=== PATIENT | female | born 1990 ===

== ENCOUNTER 2017-10-14 13:14 | Inpatient (IN) ==
[2017-10-14] MEDS ORDERED: BUPIVACAINE SPINAL 0.75% 2 ML AMP SPINAL ONE (13:47)
[2017-10-14] MEDS ORDERED: ceFAZolin 2,000 MG in PREMIX 1 EACH IV ONE (14:07)
[2017-10-14] MEDS ORDERED: CITRIC ACID/SODIUM CITRATE 30 ML UDCUP PO ONE (14:07)
[2017-10-14] MEDS ORDERED: FAMOTIDINE 20 MG/2 ML VIAL IV ONE (14:07)
[2017-10-14 14:24] LABS: Basophils % 0.4 % (0.0-0.8); Eosinophils # 0.1 10*3/uL (0.0-0.87); Eosinophils % 1.1 % (0.00-10.9); Hematocrit 35.8 VOL% (35.7-47.0); Hemoglobin 11.9 GM/DL (12.0-16.0); Immature Granulocytes % 0.7 %; Immature Granulocytes Absolute 0.08 #; Lymphocytes # 1.9 10*3/uL (1.4-4.0); Lymphocytes % 16.8 % (21.3-54.2); Mean Corpuscular HGB Conc 33.2 GM/DL (32-36); Mean Corpuscular Hemoglobin 29 PG (27-34); Mean Corpuscular Volume 87.3 FL (87-102); Monocytes # 0.7 10*3/uL (0.11-0.8); Monocytes % 6.1 % (1.7-12.7); Neutrophils # 8.6 10*3/uL (1.4-7.4); Neutrophils % 74.9 % (38.7-73.9); Platelet Count 271 T/CUMM (130-400); Red Cell Distribution Width 14.2 % (9.3-17.3); White Blood Count 11.4 T/CUMM (4-12)
[2017-10-14 14:27] LABS: Apearance,Urine CLEAR (Clear); Bacteria,Urine Occasional /HPF (Few); Bilirubin,Urine Negative (Negative); Blood, Urine Moderate mg/dL (Negative); Glucose,Urine (UA) Negative (Negative); Ketones,Urine Negative (Negative); Mucus,Urine Occasional /LPF (Occasional); Nitrite,Urine Negative (Negative); Protein,Urine Negative; RBC,Urine 56 /HPF (0-4); Squamous Epithelial Cell,Urine Occasional /HPF (0-10); Urine Color Yellow (Yellow); Urine Specific Gravity 1.012 (1.001-1.035); Urine Urobilinogen < 2.0 EU/DL (0.2-1.0); WBC,Urine 2 /HPF (0-6)
[2017-10-14] MEDS ORDERED: LACTATED RINGERS 1,000 ML IV SCH ×3 (14:30→16:00)
[2017-10-14] MEDS ORDERED: OXYTOCIN/LR 20 UNIT/1,000 ML BAG IV ONE ×3 (14:32→15:46)
[2017-10-14] MEDS ORDERED: LACTATED RINGERS 1,000 ML IV ONE ×2 (14:33→15:54)
[2017-10-14 14:36] LABS: INR 0.9; PT Patient Result 9.5 SECS; Partial Thromboplastin Time 29.9 SECS (0-40)
[2017-10-14 14:44] LABS: Barbiturates Screen,Urine Negative (Negative); Benzodiazepines Screen,Urine Negative (Negative); Cannabinoid Screen,Urine Negative (Negative); Opiate Screen,Urine Negative (Negative); Phencyclidine Screen,Urine Negative (Negative)
[2017-10-14 14:58] LABS: Alanine Aminotransferase 15 U/L (13-56); Albumin 2.9 G/DL (3.4-5.0); Alkaline Phosphatase 178 U/L (45-117); Aspartate Amino Transferase 18 U/L (0-37); Bilirubin,Total < 0.39 MG/DL (0.2-1.0); Blood Urea Nitrogen 4 MG/DL (7-18); Calcium 8.5 MG/DL (8.5-10.1); Glucose 77 MG/DL (74-106); Osmolality,Calculated 270.7 MOS/KG (273-304); Potassium 4.2 MMOL/L (3.5-5.1); Sodium 138 MMOL/L (136-145); Total Protein 6.8 G/DL (6.4-8.3)
[2017-10-14] MEDS ORDERED: SIMETHICONE CHEW 80 MG TABLET PO PRN (15:46)
[2017-10-14] MEDS ORDERED: RHO(D) IMMUNE GLOBULIN 300 MCG SYRINGE IM ONE (15:46)
[2017-10-14] MEDS ORDERED: ONDANSETRON 4 MG/2 ML VIAL IV PRN ×2 (15:46→15:59)
[2017-10-14] MEDS ORDERED: ACETAMINOPHEN 325 MG TABLET PO PRN (15:46)
[2017-10-14] MEDS ORDERED: MORPHINE 10 MG/10 ML VIAL ONE (15:54)
[2017-10-14] MEDS ORDERED: ONDANSETRON 4 MG/2 ML VIAL ONE (15:54)
[2017-10-14] MEDS ORDERED: KETOROLAC 30 MG/1 ML VIAL ONE (15:54)
[2017-10-14] MEDS ORDERED: diphenhydrAMINE 50 MG/1 ML VIAL IV PRN (15:59)
[2017-10-14] MEDS ORDERED: hydrOXYzine HCL 25 MG/1 ML VIAL IM PRN (15:59)
[2017-10-14] MEDS ORDERED: HYDROmorphone 2 MG/1 ML VIAL IV PRN (15:59)
[2017-10-14] MEDS ORDERED: SODIUM CHLORIDE 0.9% 1,000 ML IV SCH (16:00)
[2017-10-14] MEDS: DOCUSATE SODIUM 100 MG CAPSULE PO SCH (22:34)
[2017-10-14] MEDS: ceFAZolin 1,000 MG in SYRINGE 1 EACH IV SCH (22:55)
[2017-10-14 23:38] LABS: Basophils % 0.3 % (0.0-0.8); Eosinophils # 0.1 10*3/uL (0.0-0.87); Eosinophils % 0.6 % (0.00-10.9); Hematocrit 30.4 VOL% (35.7-47.0); Hemoglobin 10.5 GM/DL (12.0-16.0); Immature Granulocytes % 0.5 %; Immature Granulocytes Absolute 0.06 #; Lymphocytes # 1.7 10*3/uL (1.4-4.0); Lymphocytes % 14.6 % (21.3-54.2); Mean Corpuscular HGB Conc 34.5 GM/DL (32-36); Mean Corpuscular Hemoglobin 29 PG (27-34); Mean Platelet Volume 9.7 FL (9.6-12.0); Monocytes # 0.5 10*3/uL (0.11-0.8); Monocytes % 4.7 % (1.7-12.7); Neutrophils % 79.3 % (38.7-73.9); Platelet Count 227 T/CUMM (130-400); Red Blood Count 3.62 MC/CUMM (3.8-5.5); Red Cell Distribution Width 13.8 % (9.3-17.3); White Blood Count 11.4 T/CUMM (4-12)
[2017-10-15 06:33] LABS: Basophils % 0.4 % (0.0-0.8); Eosinophils # 0.1 10*3/uL (0.0-0.87); Eosinophils % 0.8 % (0.00-10.9); Hematocrit 29.5 VOL% (35.7-47.0); Immature Granulocytes % 0.4 %; Immature Granulocytes Absolute 0.04 #; Lymphocytes # 1.7 10*3/uL (1.4-4.0); Lymphocytes % 16.7 % (21.3-54.2); Mean Corpuscular HGB Conc 33.9 GM/DL (32-36); Mean Corpuscular Hemoglobin 29 PG (27-34); Mean Platelet Volume 9.6 FL (9.6-12.0); Monocytes # 0.8 10*3/uL (0.11-0.8); Monocytes % 7.8 % (1.7-12.7); Neutrophils # 7.5 10*3/uL (1.4-7.4); Neutrophils % 73.9 % (38.7-73.9); Platelet Count 201 T/CUMM (130-400); Red Blood Count 3.47 MC/CUMM (3.8-5.5); Red Cell Distribution Width 13.9 % (9.3-17.3); White Blood Count 10.1 T/CUMM (4-12)
[2017-10-15] MEDS: ceFAZolin 1,000 MG in SYRINGE 1 EACH IV SCH (06:55)
[2017-10-15] MEDS: MULTIVITAMIN (PRENATAL) TABLET PO SCH (09:38)
[2017-10-15] MEDS: DOCUSATE SODIUM 100 MG CAPSULE PO SCH ×2 (09:38→20:52)
[2017-10-15] MEDS: IBUPROFEN 800 MG TABLET PO PRN ×2 (13:31→20:53)
[2017-10-15] MEDS: MAGNESIUM HYDROXIDE SUSP 30 ML UDCUP PO PRN (20:52)
[2017-10-16] MEDS: DOCUSATE SODIUM 100 MG CAPSULE PO SCH ×2 (08:49→20:21)
[2017-10-16] MEDS: MULTIVITAMIN (PRENATAL) TABLET PO SCH (08:49)
[2017-10-16] MEDS: MAGNESIUM HYDROXIDE SUSP 30 ML UDCUP PO PRN ×2 (15:14→20:21)
[2017-10-16] MEDS: IBUPROFEN 800 MG TABLET PO PRN (15:14)
[2017-10-17 07:48] VITALS: BP 134/74
[2017-10-17] MEDS: DOCUSATE SODIUM 100 MG CAPSULE PO SCH (08:52)
[2017-10-17] MEDS: MULTIVITAMIN (PRENATAL) TABLET PO SCH (08:53)
[2017-10-17] MEDS ORDERED: DIPH/TET/ACEL PERT BOOSTER VACCINE 0.5 ML VIAL IM ONE (09:13)
== END 2017-10-17 12:15 | disposition home or self-care (01) | DRG 540 ==
LOC: N.LD 13:14 → N.OB 18:10
PROVIDERS: ADMIT Obstetrics & Gynecology; ATTEND Obstetrics & Gynecology
PROC: LDCSECT (ICD-10-PCS; 2017-10-14 14:30)

== ENCOUNTER 2018-11-04 11:25 | Inpatient (IN) ==
[2018-11-04 13:12] LABS: Basophils % 0.4 % (0.0-0.8); Eosinophils # 0.1 10*3/uL (0.0-0.87); Eosinophils % 1.3 % (0.00-10.9); Hematocrit 32.7 VOL% (35.7-47.0); Hemoglobin 10.5 GM/DL (12.0-16.0); Immature Granulocytes % 0.5 %; Immature Granulocytes Absolute 0.05 #; Lymphocytes # 2.3 10*3/uL (1.4-4.0); Lymphocytes % 20.7 % (21.3-54.2); Mean Corpuscular HGB Conc 32.1 GM/DL (32-36); Mean Corpuscular Volume 88.9 FL (87-102); Mean Platelet Volume 9.4 FL (9.6-12.0); Monocytes % 5.4 % (1.7-12.7); Neutrophils % 71.7 % (38.7-73.9); Platelet Count 337 T/CUMM (130-400); Red Blood Count 3.68 MC/CUMM (3.8-5.5); Red Cell Distribution Width 13.4 % (9.3-17.3); White Blood Count 10.9 T/CUMM (4-12)
[2018-11-04 13:25] LABS: INR 0.9; PT Patient Result 9.9 SECS; Partial Thromboplastin Time 26.3 SECS (0-40)
[2018-11-04 13:51] LABS: Alanine Aminotransferase 15 U/L (13-56); Albumin 2.7 G/DL (3.4-5.0); Alkaline Phosphatase 148 U/L (45-117); Aspartate Amino Transferase 15 U/L (0-37); Bilirubin,Total < 0.39 MG/DL (0.2-1.0); Blood Urea Nitrogen 3 MG/DL (7-18); Calcium 8.3 MG/DL (8.5-10.1); Glucose 113 MG/DL (74-106); Osmolality,Calculated 274.5 MOS/KG (273-304); Total Protein 6.7 G/DL (6.4-8.3)
[2018-11-04] MEDS: BETAMETH SODIUM PHOS/ACETATE 30 MG/5 ML VIAL IM SCH (15:22)
[2018-11-04] MEDS: LACTATED RINGERS 1,000 ML IV SCH (21:00)
[2018-11-05] MEDS ORDERED: BUTORPHANOL 1 MG/ML VIAL IV ONE (04:09)
[2018-11-05] MEDS ORDERED: ONDANSETRON 4 MG/2 ML VIAL IV ONE (04:10)
[2018-11-05] MEDS: ACETAMINOPHEN 325 MG TABLET PO PRN (13:43)
[2018-11-05] MEDS: BETAMETH SODIUM PHOS/ACETATE 30 MG/5 ML VIAL IM SCH (17:22)
[2018-11-05] MEDS: LACTATED RINGERS 1,000 ML IV SCH (17:23)
[2018-11-06] MEDS ORDERED: ALUMINUM/MAGNES/SIMETH MAX STR 30 ML UDCUP PO PRN (08:21)
[2018-11-07 08:44] LABS: Basophils # 0.1 10*3/uL (0.0-0.2); Basophils % 0.4 % (0.0-0.8); Eosinophils # 0.1 10*3/uL (0.0-0.87); Eosinophils % 0.6 % (0.00-10.9); Hematocrit 34.8 VOL% (35.7-47.0); Hemoglobin 10.9 GM/DL (12.0-16.0); Immature Granulocytes % 1.2 %; Immature Granulocytes Absolute 0.17 #; Lymphocytes # 3.2 10*3/uL (1.4-4.0); Lymphocytes % 22.7 % (21.3-54.2); Mean Corpuscular HGB Conc 31.3 GM/DL (32-36); Mean Corpuscular Volume 90.2 FL (87-102); Mean Platelet Volume 9.6 FL (9.6-12.0); Monocytes % 6.7 % (1.7-12.7); Neutrophils % 68.4 % (38.7-73.9); Platelet Count 322 T/CUMM (130-400); Red Blood Count 3.86 MC/CUMM (3.8-5.5); Red Cell Distribution Width 13.6 % (9.3-17.3); White Blood Count 14.3 T/CUMM (4-12)
[2018-11-07 08:53] LABS: INR 0.9; PT Patient Result 9.4 SECS
[2018-11-07 09:18] LABS: Alanine Aminotransferase 21 U/L (13-56); Albumin 2.8 G/DL (3.4-5.0); Alkaline Phosphatase 137 U/L (45-117); Aspartate Amino Transferase 30 U/L (0-37); Bilirubin,Direct < 0.100 MG/DL (0.0-0.20); Bilirubin,Total < 0.39 MG/DL (0.2-1.0); Blood Urea Nitrogen 6 MG/DL (7-18); Calcium 8.6 MG/DL (8.5-10.1); Glucose 146 MG/DL (74-106); Osmolality,Calculated 275.7 MOS/KG (273-304); Total Protein 6.9 G/DL (6.4-8.3); Uric Acid 4.3 MG/DL (2.6-6.0)
[2018-11-07 10:07] LABS: Apearance,Urine Slightly Hazy (Clear); Bacteria,Urine Few /HPF (Few); Bilirubin,Urine Negative (Negative); Blood, Urine Small mg/dL (Negative); Glucose,Urine (UA) 50 mg/dL (Negative); Ketones,Urine Negative (Negative); Mucus,Urine Occasional /LPF (Occasional); Nitrite,Urine Negative (Negative); Protein,Urine Negative; RBC,Urine 1 /HPF (0-4); Squamous Epithelial Cell,Urine Many /HPF (0-10); Urine Color Yellow (Yellow); Urine Specific Gravity 1.006 (1.001-1.035); Urine Urobilinogen < 2.0 EU/DL (0.2-1.0); WBC,Urine 1 /HPF (0-6)
[2018-11-07] MEDS ORDERED: MAGNESIUM SULF RIDER 4 GM in PREMIX 1 EACH IV ONE (15:15)
[2018-11-07] MEDS ORDERED: LABETALOL 20 MG/4 ML SYRINGE IV PRN ×3 (15:15)
[2018-11-07] MEDS ORDERED: MAGNESIUM SULF RIDER 100 ML IV ONE (15:22)
[2018-11-07] MEDS: LACTATED RINGERS 1,000 ML IV SCH (15:52)
[2018-11-07] MEDS: MAGNESIUM SULF DRIP 40 GM/1,000 ML ML IV SCH (16:06)
[2018-11-07] MEDS: ACETAMINOPHEN 325 MG TABLET PO PRN (21:02)
[2018-11-08] MEDS ORDERED: BUTORPHANOL 1 MG/ML VIAL IV ONE (00:21)
[2018-11-08] MEDS ORDERED: ONDANSETRON 4 MG/2 ML VIAL IV PRN (00:21)
[2018-11-08] MEDS: ACETAMINOPHEN 325 MG TABLET PO PRN (02:53)
[2018-11-08] MEDS: LACTATED RINGERS 1,000 ML IV SCH ×3 (02:57→21:07)
[2018-11-08] MEDS ORDERED: CITRIC ACID/SODIUM CITRATE 30 ML UDCUP PO PRN (04:50)
[2018-11-08] MEDS ORDERED: ceFAZolin 2,000 MG in PREMIX 1 EACH IV PRN (04:50)
[2018-11-08] MEDS ORDERED: DEXAMETHASONE 4 MG/1 ML VIAL ONE (06:59)
[2018-11-08] MEDS ORDERED: LIDOCAINE 1% 5 ML VIAL ONE (06:59)
[2018-11-08] MEDS ORDERED: BUPIVACAINE SPINAL 0.75% 2 ML AMP SPINAL ONE (06:59)
[2018-11-08] MEDS ORDERED: BUPIVACAINE 0.5% 50 ML VIAL ONE (06:59)
[2018-11-08] MEDS ORDERED: FAMOTIDINE 20 MG/2 ML VIAL IV PRN (07:00)
[2018-11-08 08:06] LABS: Hepatitis B Surface Ag Quant < 0.10 Index; Hepatitis B Surface Ag Result Negative (Negative); Rubella Antibody IgG 5.7 IU/ML
[2018-11-08] MEDS ORDERED: OXYTOCIN/LR 20 UNIT/1,000 ML BAG IV ONE ×2 (08:13→08:50)
[2018-11-08] MEDS ORDERED: MAGNESIUM HYDROXIDE SUSP 30 ML UDCUP PO PRN (08:50)
[2018-11-08] MEDS ORDERED: SIMETHICONE CHEW 80 MG TABLET PO PRN (08:50)
[2018-11-08] MEDS ORDERED: RHO(D) IMMUNE GLOBULIN 300 MCG SYRINGE IM ONE ×2 (08:50→09:30)
[2018-11-08] MEDS ORDERED: MORPHINE 10 MG/10 ML VIAL ONE (09:38)
[2018-11-08] MEDS ORDERED: ONDANSETRON 4 MG/2 ML VIAL ONE (09:39)
[2018-11-08] MEDS ORDERED: ePHEDrine 50 MG/ML AMP ONE (09:39)
[2018-11-08] MEDS ORDERED: LACTATED RINGERS 1,000 ML IV ONE (09:39)
[2018-11-08] MEDS ORDERED: PHENYLEPHRINE 1 MG/10 ML SYRINGE IV ONE (09:39)
[2018-11-08] MEDS ORDERED: fentaNYL 100 MCG/2 ML VIAL ONE (09:39)
[2018-11-08] MEDS ORDERED: miSOPROStol 200 MCG TABLET RECTAL ONE (12:12)
[2018-11-08 13:35] LABS: Hematocrit 28.3 VOL% (35.7-47.0)
[2018-11-08] MEDS: MAGNESIUM SULF DRIP 40 GM/1,000 ML ML IV SCH (14:15)
[2018-11-08] MEDS: ceFAZolin 1,000 MG in SYRINGE 1 EACH IV SCH (21:02)
[2018-11-08] MEDS: IBUPROFEN 800 MG TABLET PO PRN (21:07)
[2018-11-09] MEDS: LACTATED RINGERS 1,000 ML IV SCH ×2 (04:27→04:30)
[2018-11-09] MEDS: DOCUSATE SODIUM 100 MG CAPSULE PO SCH ×3 (04:30→20:39)
[2018-11-09] MEDS: IBUPROFEN 800 MG TABLET PO PRN ×2 (04:41→22:11)
[2018-11-09] MEDS: ceFAZolin 1,000 MG in SYRINGE 1 EACH IV SCH (04:42)
[2018-11-09 04:45] LABS: Basophils % 0.1 % (0.0-0.8); Eosinophils % 0.1 % (0.00-10.9); Hematocrit 21.1 VOL% (35.7-47.0); Hemoglobin 6.7 GM/DL (12.0-16.0); Immature Granulocytes % 0.7 %; Lymphocytes # 3.1 10*3/uL (1.4-4.0); Mean Corpuscular HGB Conc 31.8 GM/DL (32-36); Mean Corpuscular Volume 89.4 FL (87-102); Mean Platelet Volume 9.7 FL (9.6-12.0); Monocytes % 7.4 % (1.7-12.7); Neutrophils % 69.7 % (38.7-73.9); Platelet Count 241 T/CUMM (130-400); Red Blood Count 2.36 MC/CUMM (3.8-5.5); Red Cell Distribution Width 13.5 % (9.3-17.3); White Blood Count 14.1 T/CUMM (4-12)
[2018-11-09] MEDS: MULTIVITAMIN (PRENATAL) TABLET PO SCH ×2 (12:08→12:10)
[2018-11-09] MEDS: FERROUS SULFATE 325 MG TABLET PO SCH ×3 (12:08→20:39)
[2018-11-09] MEDS: LABETALOL 100 MG TABLET PO SCH ×2 (12:36→21:30)
[2018-11-09] MEDS ORDERED: SODIUM CHLORIDE 0.9% 1,000 ML IV PRN ×2 (15:55→23:01)
[2018-11-10 05:40] LABS: Basophils % 0.2 % (0.0-0.8); Eosinophils # 0.1 10*3/uL (0.0-0.87); Eosinophils % 0.4 % (0.00-10.9); Hematocrit 25.7 VOL% (35.7-47.0); Hemoglobin 8.5 GM/DL (12.0-16.0); Immature Granulocytes % 1.2 %; Immature Granulocytes Absolute 0.15 #; Lymphocytes # 2.4 10*3/uL (1.4-4.0); Lymphocytes % 18.7 % (21.3-54.2); Mean Corpuscular HGB Conc 33.1 GM/DL (32-36); Mean Corpuscular Volume 86.5 FL (87-102); Mean Platelet Volume 9.5 FL (9.6-12.0); Monocytes % 7.9 % (1.7-12.7); NRBC # 0.06 10*3/uL; Neutrophils % 71.6 % (38.7-73.9); Platelet Count 239 T/CUMM (130-400); Red Blood Count 2.97 MC/CUMM (3.8-5.5); Red Cell Distribution Width 14.5 % (9.3-17.3); White Blood Count 12.7 T/CUMM (4-12)
[2018-11-10] MEDS: IBUPROFEN 800 MG TABLET PO PRN ×2 (05:40→23:30)
[2018-11-10] MEDS: FERROUS SULFATE 325 MG TABLET PO SCH ×3 (08:52→21:29)
[2018-11-10] MEDS: MULTIVITAMIN (PRENATAL) TABLET PO SCH (08:52)
[2018-11-10] MEDS: DOCUSATE SODIUM 100 MG CAPSULE PO SCH ×2 (08:53→21:30)
[2018-11-10] MEDS: LABETALOL 100 MG TABLET PO SCH ×2 (09:07→21:25)
[2018-11-11 07:50] VITALS: BP 130/74
[2018-11-11] MEDS: LABETALOL 100 MG TABLET PO SCH (08:19)
[2018-11-11] MEDS: FERROUS SULFATE 325 MG TABLET PO SCH (08:21)
[2018-11-11] MEDS: DOCUSATE SODIUM 100 MG CAPSULE PO SCH (08:21)
[2018-11-11] MEDS: MULTIVITAMIN (PRENATAL) TABLET PO SCH (08:21)
[2018-11-11] MEDS ORDERED: DIPH/TET/ACEL PERT BOOSTER VACCINE 0.5 ML VIAL IM ONE (09:34)
== END 2018-11-11 14:55 | disposition home or self-care (01) | DRG 540 ==
LOC: N.LD 11:25 → N.LDOUT 11:25 → N.LD 11:29 → N.OB 11-09 11:03
PROVIDERS: ADMIT Obstetrics & Gynecology; ATTEND Obstetrics & Gynecology
PROC: LDCSECT (ICD-10-PCS; 2018-11-08 08:00)

== ENCOUNTER 2019-10-22 12:14 | Inpatient (IN) ==
[2019-10-22] MEDS ORDERED: ceFAZolin 2,000 MG in PREMIX 1 EACH IV ONE (12:23)
[2019-10-22] MEDS ORDERED: FAMOTIDINE 20 MG/2 ML VIAL IV ONE (12:23)
[2019-10-22] MEDS ORDERED: CITRIC ACID/SODIUM CITRATE 30 ML UDCUP PO ONE (12:23)
[2019-10-22] MEDS ORDERED: LACTATED RINGERS 1,000 ML IV SCH (12:30)
[2019-10-22] MEDS ORDERED: OXYTOCIN 10 UNIT/ML VIAL IM ONE (12:41)
[2019-10-22] MEDS ORDERED: OXYTOCIN/LR 30 UNIT/1,000 ML BAG IV ONE (12:41)
[2019-10-22] MEDS ORDERED: TRANEXAMIC ACID 1,000 MG/10 ML VIAL ONE (12:44)
[2019-10-22] MEDS ORDERED: OXYTOCIN/LR 20 UNIT/1,000 ML BAG IV ONE ×2 (12:44→14:24)
[2019-10-22] MEDS ORDERED: miSOPROStoL 200 MCG TABLET ONE (12:44)
[2019-10-22] MEDS ORDERED: METHYLERGONOVINE 0.2 MG/1 ML AMP ONE (12:45)
[2019-10-22] MEDS ORDERED: SODIUM CHLORIDE 0.9% 100 ML IV ONE (12:45)
[2019-10-22] MEDS ORDERED: CARBOPROST TROMETHAMINE 250 MCG/ML AMP IM ONE (12:45)
[2019-10-22 12:46] LABS: Basophils % 0.3 % (0.0-0.8); Eosinophils # 0.1 10*3/uL (0.0-0.87); Eosinophils % 0.4 % (0.00-10.9); Hematocrit 31.6 VOL% (35.7-47.0); Hemoglobin 9.8 GM/DL (12.0-16.0); Immature Granulocytes Absolute 0.12 #; Lymphocytes # 1.8 10*3/uL (1.4-4.0); Lymphocytes % 14.3 % (21.3-54.2); Mean Corpuscular Volume 84.5 FL (87-102); Monocytes % 5.9 % (1.7-12.7); Neutrophils % 78.1 % (38.7-73.9); Platelet Count 287 T/CUMM (130-400); Red Blood Count 3.74 MC/CUMM (3.8-5.5); Red Cell Distribution Width 16.1 % (9.3-17.3); White Blood Count 12.6 T/CUMM (4-12)
[2019-10-22] MEDS ORDERED: PROMETHAZINE 25 MG/1 ML VIAL IM ONE (12:56)
[2019-10-22] MEDS ORDERED: hydrOXYzine HCL 25 MG/1 ML VIAL IM PRN (12:56)
[2019-10-22] MEDS ORDERED: LACTATED RINGERS 1,000 ML IV ONE (12:56)
[2019-10-22] MEDS ORDERED: ePHEDrine 50 MG/ML AMP IV PRN (12:56)
[2019-10-22] MEDS ORDERED: ONDANSETRON 4 MG/2 ML VIAL IV ONE (12:56)
[2019-10-22] MEDS ORDERED: diphenhydrAMINE 50 MG/1 ML VIAL IV PRN ×2 (12:56→16:50)
[2019-10-22 13:02] LABS: Apearance,Urine Slightly Hazy (Clear); Bacteria,Urine Occasional /HPF (Few); Bilirubin,Urine Negative (Negative); Blood, Urine Negative (Negative); Glucose,Urine (UA) Negative (Negative); Ketones,Urine Negative (Negative); Mucus,Urine Many /LPF (Occasional); Nitrite,Urine Negative (Negative); Protein,Urine 30 MG/DL; RBC,Urine 1 /HPF (0-4); Squamous Epithelial Cell,Urine Occasional /HPF (0-10); Urine Specific Gravity 1.017 (1.001-1.035); WBC,Urine 9 /HPF (0-6)
[2019-10-22 13:03] LABS: Urine Color Yellow (Yellow)
[2019-10-22 13:13] LABS: Alanine Aminotransferase 30 U/L (13-56); Albumin 2.5 G/DL (3.4-5.0); Alkaline Phosphatase 201 U/L (45-117); Aspartate Amino Transferase 78 U/L (0-37); Bilirubin,Total < 0.39 MG/DL (0.2-1.0); Blood Urea Nitrogen 4 MG/DL (7-18); Calcium 8.2 MG/DL (8.5-10.1); Estimated Glom Filtration Rate 108 ML/MIN; Glucose 117 MG/DL (74-106); Osmolality,Calculated 267.1 MOS/KG (273-304); Total Protein 7.2 G/DL (6.4-8.3)
[2019-10-22 13:24] LABS: PT Patient Result 11.1 SECS (9.8-11.9); Partial Thromboplastin Time 28.6 SECS (23.9-33.8)
[2019-10-22 13:52] LABS: Cord Arterial Blood HCO3 20.6 MMOL/L
[2019-10-22 13:55] LABS: Cord Venous Blood HCO3 21.1 MMOL/L; Cord Venous Blood PCO2 51.2 MMHG
[2019-10-22] MEDS ORDERED: RHO(D) IMMUNE GLOBULIN 300 MCG SYRINGE IM ONE (14:24)
[2019-10-22] MEDS ORDERED: ACETAMINOPHEN 325 MG TABLET PO PRN (14:24)
[2019-10-22] MEDS ORDERED: ONDANSETRON 4 MG/2 ML VIAL IV PRN (14:24)
[2019-10-22] MEDS ORDERED: PHENYLEPHRINE 1 MG/10 ML SYRINGE IV ONE (14:37)
[2019-10-22] MEDS ORDERED: MORPHINE 10 MG/10 ML VIAL ONE (14:37)
[2019-10-22] MEDS ORDERED: BUPIVACAINE SPINAL 0.75% 2 ML AMP SPINAL ONE (14:37)
[2019-10-22] MEDS ORDERED: ONDANSETRON 4 MG/2 ML VIAL ONE (14:37)
[2019-10-22] MEDS ORDERED: fentaNYL 100 MCG/2 ML VIAL ONE (14:37)
[2019-10-22 16:42] LABS: HIV Antigen/Antibody Result Nonreactive (Nonreactive); Hepatitis B Surface Ag Quant 0.11 Index; Hepatitis B Surface Ag Result Negative (Negative)
[2019-10-22] MEDS: hydrALAZINE 20 MG/1 ML VIAL IV SCH ×2 (21:15→21:35)
[2019-10-22] MEDS: ceFAZolin 1,000 MG in SYRINGE 1 EACH IV SCH (21:20)
[2019-10-22] MEDS: DOCUSATE SODIUM 100 MG CAPSULE PO SCH (21:25)
[2019-10-22 22:44] LABS: Basophils % 0.2 % (0.0-0.8); Eosinophils % 0.2 % (0.00-10.9); Hemoglobin 9.2 GM/DL (12.0-16.0); Immature Granulocytes % 0.6 %; Immature Granulocytes Absolute 0.07 #; Lymphocytes # 2.3 10*3/uL (1.4-4.0); Lymphocytes % 18.8 % (21.3-54.2); Mean Corpuscular HGB Conc 31.7 GM/DL (32-36); Mean Corpuscular Volume 81.9 FL (87-102); Mean Platelet Volume 9.1 FL (9.6-12.0); Monocytes % 5.7 % (1.7-12.7); Neutrophils % 74.5 % (38.7-73.9); Platelet Count 235 T/CUMM (130-400); Red Blood Count 3.54 MC/CUMM (3.8-5.5); Red Cell Distribution Width 15.9 % (9.3-17.3); White Blood Count 12.4 T/CUMM (4-12)
[2019-10-23] MEDS: LACTATED RINGERS 1,000 ML IV SCH
[2019-10-23] MEDS: ceFAZolin 1,000 MG in SYRINGE 1 EACH IV SCH (04:52)
[2019-10-23] MEDS ORDERED: ceFAZolin 1,000 MG in SYRINGE 1 EACH IV SCH (05:00)
[2019-10-23 05:34] LABS: Basophils % 0.3 % (0.0-0.8); Eosinophils % 0.4 % (0.00-10.9); Hematocrit 26.1 VOL% (35.7-47.0); Hemoglobin 8.2 GM/DL (12.0-16.0); Immature Granulocytes % 0.6 %; Immature Granulocytes Absolute 0.06 #; Lymphocytes # 1.9 10*3/uL (1.4-4.0); Lymphocytes % 18.8 % (21.3-54.2); Mean Corpuscular HGB Conc 31.4 GM/DL (32-36); Mean Corpuscular Volume 83.9 FL (87-102); Mean Platelet Volume 9.1 FL (9.6-12.0); Neutrophils % 73.9 % (38.7-73.9); Platelet Count 234 T/CUMM (130-400); Red Blood Count 3.11 MC/CUMM (3.8-5.5); White Blood Count 10.3 T/CUMM (4-12)
[2019-10-23] MEDS: MAGNESIUM HYDROXIDE SUSP 30 ML UDCUP PO PRN ×2 (09:29→21:30)
[2019-10-23] MEDS: DOCUSATE SODIUM 100 MG CAPSULE PO SCH ×2 (09:29→21:30)
[2019-10-23] MEDS: FERROUS SULFATE 325 MG TABLET PO SCH ×2 (09:29→21:30)
[2019-10-23] MEDS: MULTIVITAMIN (PRENATAL) TABLET PO SCH (09:29)
[2019-10-23] MEDS: SIMETHICONE CHEW 80 MG TABLET PO PRN ×2 (09:30→21:30)
[2019-10-23] MEDS: IBUPROFEN 800 MG TABLET PO PRN ×2 (09:30→21:30)
[2019-10-23] MEDS: METOCLOPRAMIDE 10 MG TABLET PO PRN ×2 (14:22→21:30)
[2019-10-24] MEDS: LACTATED RINGERS 1,000 ML IV SCH (01:12)
[2019-10-24] MEDS: MULTIVITAMIN (PRENATAL) TABLET PO SCH (08:35)
[2019-10-24] MEDS: MAGNESIUM HYDROXIDE SUSP 30 ML UDCUP PO PRN (08:35)
[2019-10-24] MEDS: IBUPROFEN 800 MG TABLET PO PRN (08:35)
[2019-10-24] MEDS: SIMETHICONE CHEW 80 MG TABLET PO PRN (08:35)
[2019-10-24] MEDS: DOCUSATE SODIUM 100 MG CAPSULE PO SCH (08:35)
[2019-10-24] MEDS: FERROUS SULFATE 325 MG TABLET PO SCH (08:35)
[2019-10-24] MEDS: METOCLOPRAMIDE 10 MG TABLET PO PRN (08:35)
[2019-10-24] MEDS ORDERED: BISACODYL 10 MG SUPP RECTAL PRN (09:35)
[2019-10-24 11:41] VITALS: BP 138/80
[2019-10-24] MEDS ORDERED: MEASLES/MUMPS/RUBELLA VACCINE 0.5 ML VIAL SUBCUT ONE (13:39)
== END 2019-10-24 14:15 | disposition home or self-care (01) | DRG 540 ==
LOC: N.LDOUT 12:14 → N.LD 12:38 → N.OB 10-23 06:20
PROVIDERS: ADMIT Obstetrics & Gynecology; ATTEND Obstetrics & Gynecology